=== PATIENT | female | born 1945 | race Caucasian/White ===

== ENCOUNTER 2017-09-04 07:16 | Outpatient (CLI) | payer OTHER ==
[~2017-09-04 07:16] MED LIST: GABAPENTIN300 MG PO
== END 2017-09-04 07:27 | disposition home or self-care (01) ==
LOC: NUCLEAR 07:16
DX: M51.17 Intervertebral disc disorders with radiculopathy, lumbosacral region (principal); M46.26 Osteomyelitis of vertebra, lumbar region; M62.08 Separation of muscle (nontraumatic), other site
CPT/HCPCS: 78315; 78306; 78320; A9503

== ENCOUNTER → 2017-09-16 | Emergency (ER) | payer OTHER ==
[~2017-09-16] VITALS: Ht 157.5 cm; Wt 77.1 kg
[~2017-09-16] MED LIST changes: +BACTRIM DS TAB1 EACH PO
== END | disposition home or self-care (01) ==
LOC: ER 23:38
DX: L27.0 Generalized skin eruption due to drugs and medicaments taken internally (principal); T37.8X5A Adverse effect of other specified systemic anti-infectives and antiparasitics, initial encounter

== ENCOUNTER 2021-07-18 06:45 | Day surgery (SDC) | payer OTHER ==
[~2021-07-18 06:45] MED LIST changes: +COZAAR50 MG PO; +CRESTOR20 MG PO; +[UNRECOGNIZED DRUG - OTHER] PO
[2021-07-18] MEDS ORDERED: ULTRACET PO (11:03)
[2021-07-18] MEDS ORDERED: CIPRO250 MG PO (11:04)
== END 2021-07-18 15:20 | disposition home or self-care (01) ==
LOC: CIR.AMB 06:45
PROVIDERS: ATTEND Obstetrics & Gynecology Gynecology
DX: N32.81 Overactive bladder (principal); Z20.822 Contact with and (suspected) exposure to COVID-19
CPT/HCPCS: 64590; 64581; 95972; C1778; L8679